=== PATIENT | female | born 1970 | race Caucasian/White ===

== ENCOUNTER → 2017-03-30 | Outpatient (CLI) | payer OTHER ==
[~2017-03-30] MED LIST: ASPI1TAB51 PO; BUTA1CAP58 PO; DULO30CA2 PO; ESTR1PAT79 TP; LEVO137T3 PO; METO10TA82 PO; ONAB100V INJ; SUMA100T4 PO; TRAM50TA2 PO
== END | disposition home or self-care (01) ==
LOC: CFH 07:32
PROVIDERS: ATTEND Obstetrics & Gynecology
DX: Z12.31 Encounter for screening mammogram for malignant neoplasm of breast (principal)
CPT/HCPCS: G0202

== ENCOUNTER 2017-06-29 08:57 | Day surgery (SDC) | payer OTHER ==
[~2017-06-29] VITALS: Ht 157.5 cm; Wt 54.0 kg
[~2017-06-29 08:57] MED LIST changes: +BUPIVACAINE/PF-EPI 0.25% 1:200K ONE; +DULO60CA7 PO; +ESTR1PAT81 TP; +LEVO112T4 PO; +MEDICAL MARIJUANA PO; +SUMA100T3 PO
[2017-06-29] MEDS ORDERED: LACTATED RINGERS 1,000 ML IV SCH (09:10)
[2017-06-29 09:31] VITALS: BP 118/74
[2017-06-29] MEDS ORDERED: FENTANYL PF 100 MCG/2ML ONE ×2 (12:46→13:52)
[2017-06-29] MEDS ORDERED: HYDROmorphone 1 MG/ML, 1ML ONE (12:46)
[2017-06-29] MEDS ORDERED: CEFAZOLIN 1,000 MG ONE (12:49)
[2017-06-29] MEDS ORDERED: ONDANSETRON 2MG/ML, 2ML ONE (12:49)
[2017-06-29] MEDS ORDERED: SUCCINYLCHOLINE 20 MG/ML, 10ML ONE (12:49)
[2017-06-29] MEDS ORDERED: DEXAMETHASONE 4 MG/ML, 1ML ONE (12:49)
[2017-06-29] MEDS ORDERED: ROCURONIUM 10 MG/ML ONE (12:49)
[2017-06-29] MEDS ORDERED: KETOROLAC 30 MG/1 ML ONE (12:49)
[2017-06-29] MEDS ORDERED: PROPOFOL 10 MG/ML, 20ML ONE (12:49)
[2017-06-29] MEDS ORDERED: ACETAMINOPHEN 325 MG TABLET ONE (13:53)
[2017-06-29] MEDS ORDERED: OXYcodone 5 MG/5 ML ORAL.SOL UDC ONE (13:53)
[2017-06-29] MEDS ORDERED: PROMETHAZINE 25 MG/ML, 1ML IV PRN (14:00)
[2017-06-29] MEDS ORDERED: ACETAMINOPHEN 325 MG TABLET PO PRN (14:00)
[2017-06-29] MEDS ORDERED: HYDROmorphone 1 MG/ML, 1ML IV PRN (14:00)
[2017-06-29] MEDS ORDERED: hydrALAzine 20 MG/ML, 1ML IV PRN (14:00)
[2017-06-29] MEDS ORDERED: OXYcodone 5 MG/5 ML ORAL.SOL UDC PO PRN (14:00)
[2017-06-29] MEDS ORDERED: LABETALOL 5MG/ML, 20ML IV PRN (14:00)
[2017-06-29] MEDS ORDERED: DIAZEPAM 5 MG/ML, 2ML IVPush PRN (14:00)
[2017-06-29] MEDS ORDERED: MEPERIDINE/PF 25MG/0.5ML IVPush PRN (14:00)
[2017-06-29] MEDS ORDERED: MIDAZOLAM 1 MG/ML, 2ML IV PRN (14:00)
[2017-06-29] MEDS ORDERED: ONDANSETRON 2MG/ML, 2ML IVPush PRN (14:00)
[2017-06-29] MEDS: FENTANYL PF 100 MCG/2ML IV PRN ×2 (14:26→14:32)
== END 2017-06-29 15:30 | disposition home or self-care (01) ==
LOC: OUT 08:57
PROVIDERS: ATTEND Specialist
DX: N76.5 Ulceration of vagina (principal); Z87.42 Personal history of other diseases of the female genital tract
CPT/HCPCS: 57106; 88305; J0330; J0690; J1100; J1170; J1885; J2405; J2704; J3010; J7120

== ENCOUNTER → 2018-03-25 | Outpatient (CLI) | payer OTHER ==
[~2018-03-25] MED LIST changes: -BUPIVACAINE/PF-EPI 0.25% 1:200K ONE; +BUPR150T6 PO; +GADOBUTROL 7.5 MMOL/7.5 ML VIAL ONE
== END | disposition home or self-care (01) ==
LOC: CFH 13:06
PROVIDERS: ATTEND Physician Assistant
DX: M50.322 Other cervical disc degeneration at C5-C6 level (principal); M51.36 Other intervertebral disc degeneration, lumbar region; G43.909 Migraine, unspecified, not intractable, without status migrainosus; I65.29 Occlusion and stenosis of unspecified carotid artery
CPT/HCPCS: 72156; 93880; A9585

== ENCOUNTER 2018-08-01 14:17 | Emergency (ER) | payer OTHER ==
[~2018-08-01] VITALS: Ht 157.5 cm; Wt 63.8 kg
[~2018-08-01 14:17] MED LIST changes: -GADOBUTROL 7.5 MMOL/7.5 ML VIAL ONE
[2018-08-01] MEDS ORDERED: ESCI5TAB7 PO (14:38)
[2018-08-01] MEDS ORDERED: AMIT75TA PO (14:39)
[2018-08-01] MEDS ORDERED: KETOROLAC 30 MG/1 ML IVPush ONE (15:00)
[2018-08-01] MEDS ORDERED: METOCLOPRAMIDE 5 MG/ML, 2ML IVPush ONE (15:00)
[2018-08-01] MEDS ORDERED: SODIUM CHLORIDE FLUSH 10ML SYR IVF ONE (15:00)
[2018-08-01] MEDS ORDERED: DIPHENHYDRAMINE 50 MG/ML, 1ML IVPush ONE (15:00)
[2018-08-01] MEDS ORDERED: DIPHENHYDRAMINE 50 MG/ML, 1ML ONE (15:04)
[2018-08-01] MEDS ORDERED: METOCLOPRAMIDE 5 MG/ML, 2ML ONE (15:04)
[2018-08-01] MEDS ORDERED: KETOROLAC 30 MG/1 ML ONE (15:04)
[2018-08-01] MEDS ORDERED: DEXAMETHASONE 4 MG/ML, 5ML ONE (15:04)
[2018-08-01] MEDS ORDERED: DEXAMETHASONE 4 MG/ML, 5ML IV ONE (15:30)
[2018-08-01] MEDS ORDERED: ONDANSETRON 2MG/ML, 2ML IVPush ONE (17:00)
[2018-08-01] MEDS ORDERED: HYDROmorphone 2 MG/ML, 1ML IVPush ONE (17:00)
[2018-08-01] MEDS ORDERED: ONDANSETRON 2MG/ML, 2ML ONE (17:05)
[2018-08-01] MEDS ORDERED: HYDROmorphone 2 MG/ML, 1ML ONE (17:06)
[2018-08-01 17:36] VITALS: BP 130/68
== END 2018-08-01 18:11 | disposition home or self-care (01) ==
LOC: ED 17:53
DX: G43.019 Migraine without aura, intractable, without status migrainosus (principal); Z86.73 Personal history of transient ischemic attack (TIA), and cerebral infarction without residual deficits
CPT/HCPCS: 96374; 96375; 99284; J1100; J1170; J1200; J1885; J2405; J2765

== ENCOUNTER → 2018-12-03 | Outpatient (CLI) | payer OTHER ==
[~2018-12-03] MED LIST changes: +AMIT75TA PO; +ESCI5TAB7 PO
== END | disposition home or self-care (01) ==
LOC: CFH 14:25
PROVIDERS: ATTEND Obstetrics & Gynecology
DX: Z12.31 Encounter for screening mammogram for malignant neoplasm of breast (principal)
CPT/HCPCS: 77063; 77067

== ENCOUNTER → 2019-09-26 | Outpatient (CLI) | payer OTHER ==
[~2019-09-26] MED LIST changes: +ALPR0.25 PO; +VARE1TAB21 PO; +VENL75CA PO
[2019-09-26 14:18] LABS: BASOPHILS # (AUTO) 0.04 x10^3/uL (0-0.1); BASOPHILS % (AUTO) 1 % (0-1); EOSINOPHILS # (AUTO) 0.14 x10^3/uL (0-0.4); EOSINOPHILS % (AUTO) 2 % (1-7); LYMPHOCYTES # (AUTO) 2.55 x10^3/uL (1-3.4); LYMPHOCYTES % (AUTO) 34 % (22-44); MD NO; MEAN CORPUSCULAR HEMOGLOBIN 31.7 pg (27.0-34.8); MEAN CORPUSCULAR HGB CONC 33.3 g/dL (32.4-35.8); MEAN CORPUSCULAR VOLUME 95.3 fL (80-100); MEAN PLATELET VOLUME 7.7 fL (7.4-10.4); MONOCYTES # (AUTO) 0.58 x10^3/uL (0.2-0.8); MONOCYTES % (AUTO) 8 % (2-9); NEUTROPHILS # (AUTO) 4.28 x10^3/uL (1.8-6.8); NEUTROPHILS % (AUTO) 56 % (42-75); PLATELET COUNT 363 x10^3/uL (130-400); RED BLOOD COUNT 4.51 x10^6/uL (3.82-5.3); RED CELL DISTRIBUTION WIDTH 14.2 % (9.6-15.2)
[2019-09-26 14:25] LABS: ALANINE AMINOTRANSFERASE 60 U/L (12-78); ALBUMIN 4.2 g/dL (3.4-5.0); ANION GAP 8 mmol/L (5-15); CHLORIDE 109 mmol/L (98-107); CREATININE 0.78 mg/dL (0.55-1.02); INTERNATIONAL NORMALIZED RATIO 0.93 (0.93-1.1); PROTHROMBIN TIME 9.8 Seconds (9.6-11.5)
[2019-09-26 14:27] LABS: ALKALINE PHOSPHATASE 131 U/L (45-117); BILIRUBIN,TOTAL 0.2 mg/dL (0.2-1.0); TOTAL PROTEIN 7.8 g/dL (6.4-8.2)
== END | disposition home or self-care (01) ==
LOC: STAR 13:23
PROVIDERS: ATTEND Specialist
DX: Z01.818 Encounter for other preprocedural examination (principal); N90.1 Moderate vulvar dysplasia; N90.89 Other specified noninflammatory disorders of vulva and perineum; F12.10 Cannabis abuse, uncomplicated; Z87.891 Personal history of nicotine dependence
CPT/HCPCS: 36415; 71046; 80053; 85025; 85610; 85730; 93005